=== PATIENT | male | born 1935 | race Caucasian/White ===

== ENCOUNTER 2016-06-07 20:51 | Inpatient (IN) | payer OTHER ==
[~2016-06-07] VITALS: Ht 180.3 cm; Wt 77.3 kg
--- NOTE | 2016-06-07 21:22 | DIAGNOSTIC IMAGING REPORT ---
PROCEDURE: CT HEAD WITHOUT CONTRAST INDICATION: Code stroke. TECHNIQUE: Noncontrast axial images with sagittal and coronal reformations. COMPARISON: None. FINDINGS: There is mild to moderate motion. 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 There is no evidence an acute process or hemorrhage. Mild chronic mucosal thickening in the left ethmoid air cells. Sinuses and mastoids are otherwise normal. IMPRESSION: 1. 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 2. 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 3. There is a 2 cm cyst or focal area of encephalomalacia in the right frontal white matter. 4. No evidence of acute process or hemorrhage. 5. Findings discussed with Dr. Suhas Lind at [address] scans at this facility use dose modulation, iterative reconstruction, and/or weight-based dosing when appropriate to reduce radiation dose to as low as reasonably achievable.
--- NOTE | 2016-06-07 21:53 | ED NURSING NOTES ---
Clinical Report - Nurses [facility] [address] [place] [address] 06/07/2016 20:51 [id number] Triage time 20:50 Jun 07 2016. Acuity: LEVEL 3. Chief Complaint: ALTERED MENTAL STATUS. Alert. MAXIME COMA SCORE: Maxime Coma Scale: 15- eyes open spontaneously (4); best verbal response- oriented x 4 (5); best motor response- obeys commands (6). --21:00 Robert Mora R.N. 20:53 06/07/16. BP: 131/86. HR: 55. RR: 16. O2 saturation: 92% on room air. Temp: 98.3 F. Pain level now: 0/10. --21:00 Robert Mora R.N. Acuity: LEVEL 2. --21:17 Robert Mora R.N. Weight: 80 kg measured. Height/Length: 72 inches Per Patient. BMI: 23.9. --20:57 Robert Mora R.N. Medications Abilify Oral. Albuterol Sulfate Inhalation. Amoxicillin-Pot Clavulanate Oral. Aspirin Oral (Tablet Chewable 81 mg) 1 tablet, daily. Bicalutamide Oral (Tablet 50 mg) 1 tablet, daily. Calcium Carbonate Oral (Tablet Chewable 500 mg) 1 tablet, po. --21:03 Robert Mora R.N. Cyanocobalamin Injection 1000mcg tablet, daily. Fluticasone Furoate-Vilanterol Inhalation. --21:04 Robert Mora R.N. Atrovent HFA Inhalation. --21:04 Robert Mora R.N. Metoprolol Succinate ER Oral 1/2 tablet, daily. --21:05 Robert Mora R.N. Nitroglycerin Translingual (Solution 0.4 mg/spray), as needed. --21:06 Robert Mora R.N. Omeprazole Oral 20 mg, daily. Senna Oral. Sertraline HCl Oral 100 mg, daily. Simvastatin Oral 40 mg, at bedtime. Sucralfate Oral 1 gm, daily. --21:07 Robert Mora R.N. The following entry was struck and corrected by Robert Mora R.N., 22:44 (06/07/16) Reason for correction - other(correction). [facility] S[facility]. --21:07 Robert Mora R.N. --END STRIKE>> The following entry was struck and corrected by Robert Mora R.N., 22:43 (06/07/16) Reason for correction - other(correction). <<[facility] Simvastatin Oral. --21:07 Robert Mora R.N. --END STRIKE>> The following entry was struck and corrected by Robert Mora R.N., 22:43 (06/07/16) Reason for correction - other(correction). <<[facility] ENTRY-- Sertraline HCl Oral. --21:07 Robert Mora R.N. --END STRIKE>> The following entry was struck and corrected by Robert Mora R.N., 22:42 (06/07/16) Reason for correction - other(correction). <<[facility] Omeprazole Oral. --21:07 Robert Mora R.N. --END STRIKE>> The following entry was struck and corrected by Robert Mora R.N., 22:42 (06/07/16) Reason for correction - other(correction). <<[facility] Metoprolol Succinate ER Oral. --21:05 Robert Mora R.N. --END STRIKE>> The following entry was struck and corrected by Robert Mora R.N., 22:40 (06/07/16) Reason for correction - other(correction). <<[facility] Nitroglycerin Translingual. --21:06 Robert Mora R.N. --END STRIKE>> The following entry was struck and corrected by Robert Mora R.N., 22:39 (06/07/16) Reason for correction - other(correction). <<[facility] ENTRY-- Cyanocobalamin Injection. --21:04 Robert Mora R.N. --END STRIKE>> The following entry was struck and corrected by Rboert Mora R.N., 22:38 (06/07/16) Reason for correction - other(correction). <<[facility] ENTRY-- Calcium Carbonate Oral. --21:03 Robert Mora R.N. --END STRIKE>> The following entry was struck and corrected by Robert Mora R.N., 22:37 (06/07/16) Reason for correction - other(correction). <<[facility] ENTRY-- Bicalutamide Oral. --21:03 Robert Mora R.N. --END STRIKE>> The following entry was struck and corrected by Robert Mora R.N., 22:37 (06/07/16) Reason for correction - other(correction). <<[facility] ENTRY-- Aspirin Oral. --21:03 Robert Mora R.N. --END STRIKE>>. (pt's list of Rx). --21:00 Robert Mora R.N. Allergies Codeine. Definite Moderate(nausea, vomiting) --21:07 Robert Mora R.N. The following entry was struck and corrected by Robert Mora R.N., 22:45 (06/07/16) Reason for correction - other(correction). <<[facility] ENTRY-- Codeine. --21:07 Robert Mora R.N. --END STRIKE>>. History Arrived by EMS. Historian: patient. Unaccompanied. ( CODE STROKE (called). New LUE + LLE weakness, with slurred speech and (L) facial droop.). This started today. Onset. (about 1 1/2 hours ago). He has had new onset of weakness of the left face, arm and leg. He has had trouble walking. 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 --21:00 Robert Mora R.N. SURGERY HX: Appendectomy. Tonsillectomy. SOCIAL HX: Former smoker, end date 2016- 1 pack per day. No alcohol use or drug use. No infectious disease exposure. ABUSE ASSESSMENT: No report of abuse. FALL RISK ASSESSMENT: Fall risk assessment completed. No fall risk identified. NUTRITIONAL RISK ASSESSMENT: The nutritional risk assessment revealed no deficiencies. LEARNING NEEDS ASSESSMENT: The learning needs assessment revealed no barriers. FUNCTIONAL ASSESSMENT: Functional assessment performed: mobility impairment present- this mobility impairment is a new problem. SKIN INTEGRITY ASSESSMENT: Skin integrity risk assessment completed. No skin integrity risk identified. --21:17 Robert Mora R.N. PROBLEMS: Emphysema. Prostate Cancer. Back Pain. --21:12 Robert Mora R.N. Cardiac Procedures. --21:18 Robert Mora R.N. ADDITIONAL SURGERIES: Back Surgery. --21:12 Robert Mora R.N. Angioplasty of blood vessel. --21:18 Robert Mora R.N. Carotid Surgery. --21:28 Robert Mora R.N. Hernia Repair. --22:16 Robert Mora R.N. Interventions ID band on patient. To treatment room. --21:00 Robert Mora R.N. ID and allergy band on patient. --21:17 Robert Mora R.N. PHYSICAL ASSESSMENT To room via stretcher. GENERAL / NEURO / PSYCH: Alert. The patient is disoriented to time. Patient's speech is slurred. Patient appears well-nourished and neat and clean. RESPIRATORY: Respirations not labored. CVS: Normal sinus rhythm noted. Capillary refill less than 2 seconds. GI / : Abdomen soft and nontender. Bowel sounds within normal limits. SKIN: Skin is warm and dry. Normal skin turgor. --21:20 Robert Mora R.N. NURSING PROGRESS NOTES Patient transported to CT by stretcher with tech. --21:00 Robert Mora R.N. 20:57 06/07/2016 Site #1 started prior to arrival by EMS via IV in the right antecubital space with an 20g angiocath (Field Start). --21:12 Robert Mora R.N. 21:15 06/07/16. Patient returned from CT by stretcher with tech. --21:21 Robert Mora R.N. Oxygen administered by nasal cannula at 2 liters. Patient gowned. Reassurance given to the patient. Patient identifiers checked. Call light placed in reach. Side rails up x 2. Bed placed in lowest position. Brakes of bed on. Patient ready for evaluation- chart flagged and ED physician notified. --21:22 Robert Mora R.N. multifold operator, pulse oximeter and NIBP monitor placed on patient; cardiac/vascular sonographer- Lead II; monitor alarms on. Reassurance given to the patient. Patient identifiers checked. Call light placed in reach. Side rails up x 2. Bed placed in lowest position. Brakes of bed on. Patient ready for evaluation- chart flagged and ED physician notified. --21:23 Robert Mora R.N. 21:25. Patient ID band checked for patient name, birthdate and medical record number: patient confirmed. Blood samples drawn from the right antecubital space peripheral IV site by nurse: mary hardy. Line flushed with 10 mL normal saline post blood draw (blood drawn by ISAIAS Hernandez). --21:27 Robert Mora R.N. EKG time: (2 PM). EKG was ordered, performed by a tech and shown to the ED physician. --21:31 [email or web address] 22:10 06/07/2016 Started bag #1 1000 mL IV Fluids IV NS (Saline); at 100 mL/hr over 10 hour(s) via site #1 via IV pump. Allergies verified and confirmed 5 rights. IV patency established. IV site checked: no pain, redness, or swelling. IV flushed thoroughly pre- and post-medication administration. --22:15 Robert Mora R.N. 22:45 06/07/16. BP: 159/102. HR: 70. RR: 16. O2 saturation: 99% on nasal cannula at 2 liters/minute. Pain level now: 0/10. --22:46 Robert Mora R.N. 22:45 06/07/16. Patient ID band checked for patient name, birthdate and medical record number: patient confirmed. Clean catch urine collected with return of yellow-colored clear urine; odor is normal; sample sent to lab for urinalysis and culture. Specimen labeled in the presence of the patient. --22:53 Robert Mora R.N. 23:05 06/07/2016 Site #[address] upon admission; patent, no pain and no signs of infection or infiltration. Good blood return present (IV infusing). --23:34 Robert Mora R.N. 23:05 06/07/2016 IV Fluids IV NS Continued: upon admission at the rate of 100 mL/hr. 900 mL remaining bag #1. IV patency established. IV site checked: no pain, redness, or swelling. IV flushed thoroughly. --23:32 Robert oMra R.N. DISPOSITION / DISCHARGE Departure time: :Jun 07 2016. --23:18 Robert Mora R.N. 23:00 06/07/16. BP: 166/81. HR: 69. RR: 16. O2 saturation: 99% on nasal cannula at 2 liters/minute. Temp: 98.2 F (oral). Pain level now: 0/10. --23:24 Robert Mora R.N. <<[facility] ENTRY-- Departure time: 5. --23:24 Robert Mora R.N. --END STRIKE>> Correction --23:28 Robert Mora R.N. 23:05. Admitted to Acute Care. Transported via stretcher by nurse with IV and O2. Report was given to a nurse via a phone call. Report included patient's care, treatment, medications, reviewed medication reconcilliation, and condition (including any recent changes or anticipated changes). All questions were answered. Report was acknowledged and care was transferred. (Viral RN). Patient's personal items; items were placed in belongings bag and transported with the patient. --23:26 Robert Mora R.N. Locked/Released at 06/07/2016 23:36 by Robert Mora R.N.
--- NOTE | 2016-06-07 21:53 | ED CLINICAL REPORT ---
Clinical Report - Physicians/Mid Levels [facility] [address] [place] [address] 06/07/2016 20:51 Patient: YOSI BULLOCK Time Seen: 21:02. Arrived- By ambulance. Historian- patient and EMS personnel. History limited by vague historian. HISTORY OF PRESENT ILLNESS Chief Complaint: WEAKNESS and FACIAL DROOP. This started about 2 hours ago and is still present. It was abrupt in onset and has been waxing/waning. The patient has had new onset of weakness of the left face (moderate), left arm (mild) and left leg (mild). No numbness or tingling. He has had difficulty with speech and a recent fall. He has had visual disturbance (chronically). He has had difficulty walking. At its maximum deficit described as moderate. When seen in the E.D.,deficit described as moderate. REVIEW OF SYSTEMS No chills, fever, sweats, calf pain or chest pain. No cough, difficulty breathing, pedal edema, palpitations or abdominal pain. No constipation, diarrhea, nausea, vomiting or urinary problems. he has been on Plavix. A recent medication list from when he was seen at [facility] however does not list the medication. He and his family are not sure whether he has been taking it or not. All systems otherwise negative, except as recorded above. PAST HISTORY Stroke. ( metastatic prostate cancer). Problems: Cardiac Procedures. Emphysema. Prostate Cancer. Back Pain. Additional Surgeries: Angioplasty of blood vessel. Appendectomy. Back Surgery. Carotid Surgery. Tonsillectomy. Medications: Omeprazole Oral. Senna Oral. Sertraline HCl Oral. Simvastatin Oral. Sucralfate Oral. Nitroglycerin Translingual. Metoprolol Succinate ER Oral. Atrovent HFA Inhalation. Cyanocobalamin Injection. Fluticasone Furoate-Vilanterol Inhalation. Abilify Oral. Albuterol Sulfate Inhalation. Amoxicillin-Pot Clavulanate Oral. Aspirin Oral. Bicalutamide Oral. Calcium Carbonate Oral. Allergies: Codeine. SOCIAL HISTORY Former smoker. No alcohol use or drug use. Resides in an apartment. He lives with spouse. Advanced directives: [id number] (DNR). Forms provided by patient. Advanced directives discussed with the patient and family (He has his POLST with him). FAMILY HISTORY Denies family medical history. ADDITIONAL NOTES The nursing notes have been reviewed. PHYSICAL EXAM Vital Signs: 06/07/2016 20:53 BP: 131/86. HR: 55. RR: 16. O2 saturation: 92%. Temp: 98.3 F. Pain level now: 0/10. Have been reviewed. Appearance: Alert. He appears frail and elderly. Head: Head atraumatic. Eyes: Pupils equal, round and reactive to light. ENT: Airway intact. Pharynx normal. Neck: No meningeal signs or carotid bruit. (bilateral healed surgical scars). CVS: Normal heart rate and rhythm. 1/6 systolic murmur. Respiratory: No respiratory distress. Decreased air movement. Abdomen: Soft and nontender. No organomegaly. Back: (kyphotic). Skin: Skin warm and dry. No rash. Extremities: Extremities exhibit normal ROM. No calf tenderness. No lower extremity edema. Neuro: Alert. The patient is disoriented to time. Cranial nerve deficit present, as evidenced by a left facial droop. Moderate left-sided facial weakness. He has had weakness of the left face (moderate), left arm (mild), left hand (mild) and left leg (mild). LABS, X-RAYS, AND EKG EKG: Rate: 57. Ectopic beats. Premature atrial contractions. Q waves in lead V1 and V2. T wave inversion in lead V5 and V6. Prior EKG unavailable. The study has been independently viewed by me. Chest X-ray: (IMPRESSION: 1. Borderline cardiomegaly. 2. Otherwise negative chest.). The X-rays were interpreted by the radiologist and contemporaneously by me. CT Head: (IMPRESSION: 1. 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 2. 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 3. There is a 2 cm cyst or focal area of encephalomalacia in the right frontal white matter. 4. No evidence of acute process or hemorrhage.). The study was interpreted by the radiologist and contemporaneously by me. Laboratory Tests: CBC w Diff: (JAVIER: 06/07/2016 21:10) ( MsgRcvd 06/07/2016 21:38) Final results Test Result Flag Units (Reference) WHITE BLOOD COUNT 5.9 K/uL (4.5-11.5) RED BLOOD COUNT 4.14 L M/uL (4.50-5.90) HEMOGLOBIN 12.1 L gm/dL (13.5-17.5) HEMATOCRIT 36.7 L % (41.0-53.0) MEAN CELL VOLUME 89 fL (80-100) MEAN CORPUSCULAR HGB 29 pg (26-34) MEAN CORPUSCULAR HGB CONC 33 g/dL (31-37) RED CELL DISTRIBUTION WIDTH 14.8 % (11.6-14.8) PLATELET COUNT 177 K/uL (150-400) NEUTROPHIL % 51.7 % (50-75) LYMPH % 27.9 % (25-40) MONO % 10.5 % (3-14) EOSINOPHIL % 8.2 H % (0-4) BASOPHIL % 1.7 % (0-2) PT with INR: (JAVIER: 06/07/2016 21:10) ( MsgRcvd 06/07/2016 21:39) Final results Test Result Flag Units (Reference) INR 1.0 (0.8-1.2) Low Intensity Therapy: INR 1.5-2.0 PT range 18.5-23.1Mod.Intensity Therapy: INR 2.0-3.0 PT range 23.1-31.5High Intensity Therapy: INR 2.5-3.5 PT range 27.4-35.5High Intensity Therapy 2: INR 3.0-4.0 PT range 31.5-39.3 APTT 31 SECONDS (24-34) FIBRINOGEN 292 mg/dL (193-455) D-DIMER QUANTITATIVE 3.08 H ug/mLFEU (0.27-0.52) The primary value of this quantitative assay relates toits negative predictive value (i.e. exclusion) of pulmonaryembolism/deep vein thrombosis/DIC.Elevated levels of d-dimer may also occur with:, age, cancer, inflammation, liver disease,post-op, infection, hematoma, coronary disease, peripheralarteriopathy, bleeding disorders and thrombolytic treatment.Results should be correlated with other clinical andradiological data.Testing Methodology: Latex Immunoassay CPK: (JAVIER: 06/07/2016 21:10) ( [facility] [place] 22:03) Final results Test Result Flag Units (Reference) CPK 43 U/L (24-260) TROPONIN I 0.05 ng/mL (0.00-1.5) TROPONIN REFERENCE RANGE:<0.1 NEGATIVE0.1-1.5 INDETERMINANT>1.5 POSITIVE CMP: (JAVIER: 06/07/2016 21:10) ( [facility] [place] 21:36) Final results Test Result Flag Units (Reference) GLUCOSE 92 mg/dL (70-110) BUN 20 H mg/dL (7-18) CREATININE 1.5 H mg/dL (0.6-1.3) Estimated GFR 47.98 mL/min Estimated GFR- 58.15 mL/min Note: Persistent reduction over 3 months in eGFR<60 mL/min/1.73 m2 defines CKD. Patients with eGFR values>=60 mL/min/1.73 m2 may also have CKD if evidence ofpersistent proteinuria. Additional information may be foundat www.[email or web address].org. SODIUM 142 mmol/L (136-145) POTASSIUM 3.9 mmol/L (3.5-5.1) CHLORIDE 104 mmol/L (98-107) CARBON DIOXIDE 30 mmol/L (21-32) CALCIUM 8.9 mg/dL (8.5-10.1) TOTAL PROTEIN 6.5 g/dL (6.4-8.2) ALBUMIN 3.5 g/dL (3.3-5.0) BILIRUBIN, TOTAL 0.3 mg/dL (0.0-1.0) ALKALINE PHOSPHATASE 90 U/L (46-116) AST (SGOT) 24 U/L (15-37) ALT (SGPT) 18 U/L (12-78) . PROGRESS AND PROCEDURES Course of Care: Patient is stable. Discussed case with hospitalist, Kimani). Reviewed test results and need for additional work-up. Agreed upon treatment plan and decision to admit. Health care provider will see patient in hospital. Patient, spouse and family counseled regarding the patient's critical condition, test results, diagnosis and need for admission and DNR (Do Not Resuscitate) considerations for the patient. Old medical records ordered. Old records unavailable. Disposition orders written (in [facility]). Disposition: Admitted. CLINICAL IMPRESSION Abnormal EKG. Abnormal tests: (elevated d-dimer). (Electronically signed by Anil Curry MD 06/08/2016 3:01)
--- NOTE | 2016-06-07 21:53 | ED NURSING NOTES ---
Clinical Report - Nurses [facility] [address] [place] [address] 06/07/2016 20:51 [facility]: [id number] TRI[facility] Triage time 20:50 Jun 07 2016. Acuity: LEVEL 3. Chief Complaint: ALTERED MENTAL STATUS. Alert. MAXIME COMA SCORE: Maxime Coma Scale: 15- eyes open spontaneously (4); best verbal response- oriented x 4 (5); best motor response- obeys commands (6). --21:00 Robert Mora R.N. 20:53 06/07/16. BP: 131/86. HR: 55. RR: 16. O2 saturation: 92% on room air. Temp: 98.3 F. Pain level now: 0/10. --21:00 Robert Mora R.N. Acuity: LEVEL 2. --21:17 Robert Mora R.N. Weight: 80 kg measured. Height/Length: 72 inches Per Patient. BMI: 23.9. --20:57 Robert Mora R.N. Medications Abilify Oral. Albuterol Sulfate Inhalation. Amoxicillin-Pot Clavulanate Oral. Aspirin Oral (Tablet Chewable 81 mg) 1 tablet, daily. Bicalutamide Oral (Tablet 50 mg) 1 tablet, daily. Calcium Carbonate Oral (Tablet Chewable 500 mg) 1 tablet, po. --21:03 Robert Mora R.N. Cyanocobalamin Injection 1000mcg tablet, daily. Fluticasone Furoate-Vilanterol Inhalation. --21:04 Robert Mora R.N. Atrovent HFA Inhalation. --21:04 Robert Mora R.N. Metoprolol Succinate ER Oral 1/2 tablet, daily. --21:05 Robert Mora R.N. Nitroglycerin Translingual (Solution 0.4 mg/spray), as needed. --21:06 Robert Mora R.N. Omeprazole Oral 20 mg, daily. Senna Oral. Sertraline HCl Oral 100 mg, daily. Simvastatin Oral 40 mg, at bedtime. Sucralfate Oral 1 gm, daily. --21:07 Robert Mora R.N. The following entry was struck and corrected by Robert Mora R.N., 22:44 (06/07/16) Reason for correction - other(correction). <<[facility]-- Sucralfate Oral. --21:07 Robert Mora R.N. --END STRIKE>> The following entry was struck and corrected by Robert Mora R.N., 22:43 (06/07/16) Reason for correction - other(correction). <<[facility]-- Simvastatin Oral. --21:07 Robert Mora R.N. --END STRIKE>> The following entry was struck and corrected by Robert Mora R.N., 22:43 (06/07/16) Reason for correction - other(correction). <<[facility] ENTRY-- Sertraline HCl Oral. --21:07 Robert Mora R.N. --END STRIKE>> The following entry was struck and corrected by Robert Mora R.N., 22:42 (06/07/16) Reason for correction - other(correction). <<[facility]-- Omeprazole Oral. --21:07 Robert Mora R.N. --END STRIKE>> The following entry was struck and corrected by Robert Mora R.N., 22:42 (06/07/16) Reason for correction - other(correction). <<[facility]-- Metoprolol Succinate ER Oral. --21:05 Robert Mora R.N. --END STRIKE>> The following entry was struck and corrected by Robert Mora R.N., 22:40 (06/07/16) Reason for correction - other(correction). <<[facility]-- Nitroglycerin Translingual. --21:06 Robert Mora R.N. --END STRIKE>> The following entry was struck and corrected by Robert Mora R.N., 22:39 (06/07/16) Reason for correction - other(correction). <<[facility] ENTRY-- Cyanocobalamin Injection. --21:04 Robert Mora R.N. --END STRIKE>> The following entry was struck and corrected by Robert Mora R.N., 22:38 (06/07/16) Reason for correction - other(correction). <<[facility] ENTRY-- Calcium Carbonate Oral. --21:03 Robert Mora R.N. --END STRIKE>> The following entry was struck and corrected by Robert Mora R.N., 22:37 (06/07/16) Reason for correction - other(correction). <<[facility] ENTRY-- Bicalutamide Oral. --21:03 Robert Mora R.N. --END STRIKE>> The following entry was struck and corrected by Robert Mora R.N., 22:37 (06/07/16) Reason for correction - other(correction). <<[facility] ENTRY-- Aspirin Oral. --21:03 Robert Mora R.N. --END STRIKE>>. (pt's list of Rx). --21:00 Robert Mora R.N. Allergies Codeine. Definite Moderate(nausea, vomiting) --21:07 Robert Mora R.N. The following entry was struck and corrected by Robert Mora R.N., 22:45 (06/07/16) Reason for correction - other(correction). <<[facility] ENTRY-- Codeine. --21:07 Robert Mora R.N. --END STRIKE>>. History Arrived by EMS. Historian: patient. Unaccompanied. ( CODE STROKE (called). New LUE + LLE weakness, with slurred speech and (L) facial droop.). This started today. Onset. (about 1 1/2 hours ago). He has had new onset of weakness of the left face, arm and leg. He has had trouble walking. Treatment HITCHER: None. --21:00 Robert Mora R.N. SURGERY HX: Appendectomy. Tonsillectomy. SOCIAL HX: Former smoker, end date 2016- 1 pack per day. No alcohol use or drug use. No infectious disease exposure. ABUSE ASSESSMENT: No report of abuse. FALL RISK ASSESSMENT: Fall risk assessment completed. No fall risk identified. NUTRITIONAL RISK ASSESSMENT: The nutritional risk assessment revealed no deficiencies. LEARNING NEEDS ASSESSMENT: The learning needs assessment revealed no barriers. FUNCTIONAL ASSESSMENT: Functional assessment performed: mobility impairment present- this mobility impairment is a new problem. SKIN INTEGRITY ASSESSMENT: Skin integrity risk assessment completed. No skin integrity risk identified. --21:17 Robert Mora R.N. PROBLEMS: Emphysema. Prostate Cancer. Back Pain. --21:12 Robert Mora R.N. Cardiac Procedures. --21:18 Robert Mora R.N. ADDITIONAL SURGERIES: Back Surgery. --21:12 Robert Mora R.N. Angioplasty of blood vessel. --21:18 Robert Mora R.N. Carotid Surgery. --21:28 Robert Mora R.N. Hernia Repair. --22:16 Robert Mora R.N. Interventions ID band on patient. To treatment room. --21:00 Robert Mora R.N. ID and allergy band on patient. --21:17 Robert Mora R.N. PHYSICAL ASSESSMENT To room via stretcher. GENERAL / NEURO / PSYCH: Alert. The patient is disoriented to time. Patient's speech is slurred. Patient appears well-nourished and neat and clean. RESPIRATORY: Respirations not labored. CVS: Normal sinus rhythm noted. Capillary refill less than 2 seconds. GI / : Abdomen soft and nontender. Bowel sounds within normal limits. SKIN: Skin is warm and dry. Normal skin turgor. --21:20 Robert Mora R.N. NURSING PROGRESS NOTES Patient transported to CT by stretcher with tech. --21:00 Robert Mora R.N. 20:57 06/07/2016 Site #1 started prior to arrival by EMS via IV in the right antecubital space with an 20g angiocath (Field Start). --21:12 Robert Mora R.N. 21:15 06/07/16. Patient returned from CT by stretcher with tech. --21:21 Robert Mora R.N. Oxygen administered by nasal cannula at 2 liters. Patient gowned. Reassurance given to the patient. Patient identifiers checked. Call light placed in reach. Side rails up x 2. Bed placed in lowest position. Brakes of bed on. Patient ready for evaluation- chart flagged and ED physician notified. --21:22 Robert Mora R.N. surveillance monitor, pulse oximeter and NIBP monitor placed on patient; environmental monitoring technician- Lead II; monitor alarms on. Reassurance given to the patient. Patient identifiers checked. Call light placed in reach. Side rails up x 2. Bed placed in lowest position. Brakes of bed on. Patient ready for evaluation- chart flagged and ED physician notified. --21:23 Robert Mora R.N. 21:25. Patient ID band checked for patient name, birthdate and medical record number: patient confirmed. Blood samples drawn from the right antecubital space peripheral IV site by nurse: mary hardy. Line flushed with 10 mL normal saline post blood draw (blood drawn by ISAIAS Hernandez). --21:27 Robert Mora R.N. EKG time: (2 PM). EKG was ordered, performed by a tech and shown to the ED physician. --21:31 EricyukiarmandericLiliya 22:10 06/07/2016 Started bag #1 1000 mL IV Fluids IV NS (Saline); at 100 mL/hr over 10 hour(s) via site #1 via IV pump. Allergies verified and confirmed 5 rights. IV patency established. IV site checked: no pain, redness, or swelling. IV flushed thoroughly pre- and post-medication administration. --22:15 Robert Mora R.N. 22:45 06/07/16. BP: 159/102. HR: 70. RR: 16. O2 saturation: 99% on nasal cannula at 2 liters/minute. Pain level now: 0/10. --22:46 Robert Mora R.N. 22:45 06/07/16. Patient ID band checked for patient name, birthdate and medical record number: patient confirmed. Clean catch urine collected with return of yellow-colored clear urine; odor is normal; sample sent to lab for urinalysis and culture. Specimen labeled in the presence of the patient. --22:53 Robert Mora R.N. 23:05 06/07/2016 Site #[address] upon admission; patent, no pain and no signs of infection or infiltration. Good blood return present (IV infusing). --23:34 Robert Mora R.N. 23:05 06/07/2016 IV Fluids IV NS Continued: upon admission at the rate of 100 mL/hr. 900 mL remaining bag #1. IV patency established. IV site checked: no pain, redness, or swelling. IV flushed thoroughly. --23:32 Robert Mora R.N. DISPOSITION / DISCHARGE Departure time: :Jun 07 2016. --23:18 Robert Mora R.N. 23:00 06/07/16. BP: 166/81. HR: 69. RR: 16. O2 saturation: 99% on nasal cannula at 2 liters/minute. Temp: 98.2 F (oral). Pain level now: 0/10. --23:24 Robert Mora R.N. <<[facility] ENTRY-- Departure time: 5. --23:24 Robert Mora R.N. --END STRIKE>> Correction --23:28 Robert Mora R.N. 23:05. Admitted to Acute Care. Transported via stretcher by nurse with IV and O2. Report was given to a nurse via a phone call. Report included patient's care, treatment, medications, reviewed medication reconcilliation, and condition (including any recent changes or anticipated changes). All questions were answered. Report was acknowledged and care was transferred. (Viral RN). Patient's personal items; items were placed in belongings bag and transported with the patient. --23:26 Robert Mora R.N. Locked/Released at 06/07/2016 23:36 by Robert Mora R.N.
--- NOTE | 2016-06-07 21:53 | ED ORDER SUMMARY ---
..... Patient: YOSI BULLOCK OrderSheet [facility] VisitID: [id number] [address] [place] [address] 80y, M Registration Date/Time: 06/07/2016 ORDER SHEET Weight: 80 kg (measured) Allergies: Codeine, GENERAL ORDERS: CT Head wo Cont Urgent (20:55 06/07/2016 Kimberly Kidd) (Ack 20:56 AMcQuoid ER Tech1) (21:03 MCampbell) Stroke Panel Stat (20:55 06/07/2016 Kimberly Kidd) (Ack 20:56 AMcQuoid ER Tech1) (21:12 Juan M R.N.) EKG - ER Stat (20:55 06/07/2016 Kimberly Kidd) (Ack 20:56 AMcQuoid ER Tech1) (21:13 JRrafiaelli R.N.) CPK Urgent (21:42 06/07/2016 AMcQuoid ER Tech1 verbal order read back to Jenae BERNAL) (21:43 AMcQuoid ER Tech1) Troponin-I Urgent (21:42 06/07/2016 AMcQuoid ER Tech1 verbal order read back to Jenae BERNAL) (21:43 AMcQuoid ER Tech1) Chest 1V Urgent (21:54 06/07/2016 Jenae BERNAL) (Ack 21:56 AMcQuoid ER Tech1) (21:59 CBradburn R.N.) UA-Culture if indicated Urgent (22:51 06/07/2016 Juan M R.N. verbal order read back to Jenae BERNAL) (22:51 Juan M R.N.) MEDICATION ORDERS: IV FLUIDS: IV Saline Lock (20:55 06/07/2016 Kimberly Kidd) (21:12 Juan M R.N.) IV NS : initial bolus none -, then 100 mL/hr (NOW) (22:14 06/07/2016 Juan M R.N. verbal order read back to Jenae BERNAL) (22:15 omanelli R.N.) ORDER SHEET NOTES: [Electronically signed by Robert Mora R.N. (23:36 06/07/2016)] [Electronically signed by Anil Curry MD (03:01 06/08/2016)] [Electronically locked/signed by Robert Mora R.N. (23:36 06/07/2016)]
--- NOTE | 2016-06-07 21:53 | ED ORDER SUMMARY ---
..... Patient: YOSI BULLOCK OrderSheet [facility] VisitID: [id number] [address] [place] [address] 80y, M Registration Date/Time: 06/07/2016 ORDER SHEET Weight: 80 kg (measured) Allergies: Codeine, GENERAL ORDERS: CT Head wo Cont Urgent (20:55 06/07/2016 Kimberly Kidd) (Ack 20:56 AMcQuoid ER Tech1) (21:03 MCampbell) Stroke Panel Stat (20:55 06/07/2016 Kimberly Kidd) (Ack 20:56 AMcQuoid ER Tech1) (21:12 Juan M R.N.) EKG - ER Stat (20:55 06/07/2016 Kimberly Kidd) (Ack 20:56 AMcQuoid ER Tech1) (21:13 JRrafiaelli R.N.) CPK Urgent (21:42 06/07/2016 AMcQuoid ER Tech1 verbal order read back to Jenae BERNAL) (21:43 AMcQuoid ER Tech1) Troponin-I Urgent (21:42 06/07/2016 AMcQuoid ER Tech1 verbal order read back to Jenae BERNAL) (21:43 AMcQuoid ER Tech1) Chest 1V Urgent (21:54 06/07/2016 Jenae BERNAL) (Ack 21:56 AMcQuoid ER Tech1) (21:59 CBradburn R.N.) UA-Culture if indicated Urgent (22:51 06/07/2016 Juan M R.N. verbal order read back to Jenae BERNAL) (22:51 Juan M R.N.) MEDICATION ORDERS: IV FLUIDS: IV Saline Lock (20:55 06/07/2016 Kimberly Kidd) (21:12 Juan M R.N.) IV NS : initial bolus none -, then 100 mL/hr (NOW) (22:14 06/07/2016 Juan M R.N. verbal order read back to Jenae BERNAL) (22:15 omanelli R.N.) ORDER SHEET NOTES: [Electronically signed by Robert Mora R.N. (23:36 06/07/2016)] [Electronically signed by Anil Curry MD (03:01 06/08/2016)] [Electronically locked/signed by Robert Mora R.N. (23:36 06/07/2016)]
--- NOTE | 2016-06-07 22:23 | History & Physical Report ---
Information Source Information Source: Self Reliability: Poor History Chief Complaint left sided weakness new onset History of Present Illness Patient is a 80 year old male that is presenting with a new onset of left sided weakness. Pateint can not provide much history however around 930 today patient noticed that he had sudden onset left sided weakness and left sided facial droop. He had accompanying dysarthria stemming from the left sided facial weakness. Patient has had a history of strokes in the past which has left him with varying degrees of deficits however patient could not expand on this secondary to his dysarthria. Patient is adament that the left sided weakness symptoms are new. Pateint has no other complaints at the moment, currently waiting for the with more information. Patient History 1. Abnormal EKG 2. Renal insufficiency 3. 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 Patient smoked 1 pack a day for the past 55 years, quit 1 year ago. Pateint does not drink or use illicit substances. He lives in a apartment with his . Family History Family history was reviewed; no changes noted. Medications and Allergies Medications Home Medications Abilify Oral. Albuterol Sulfate Inhalation. Amoxicillin-Pot Clavulanate Oral. Aspirin Oral (Tablet Chewable 81 mg) 1 tablet, daily. Bicalutamide Oral (Tablet 50 mg) 1 tablet, daily. Calcium Carbonate Oral (Tablet Chewable 500 mg) 1 tablet, po. --21:03 Cyanocobalamin Injection 1000mcg tablet, daily. Fluticasone Furoate-Vilanterol Inhalation Atrovent HFA Inhalation. Metoprolol Succinate ER Oral 1/2 tablet, daily Nitroglycerin Translingual (Solution 0.4 mg/spray), as needed Omeprazole Oral 20 mg, daily. Senna Oral. Sertraline HCl Oral 100 mg, daily. Simvastatin Oral 40 mg, at bedtime. Sucralfate Oral 1 gm, daily Current Medications Sig/Bill Start time Last Medication Dose Route Stop Time Status Admin Atorvastatin Calcium 40 MG QPM 06/08 1800 AC PO Aspirin 325 MG DAILY 06/08 0900 AC PO Acetaminophen 650 MG Q6H PRN 06/075 AC PO Sodium Chloride 1,000 ML ASDIRECTED 06/07 2245 AC IV Sodium Chloride 1,000 ML ASDIRECTED 06/07 2230 AC IV Allergies Coded Allergies: Codeine (06/07/16) Review of Systems Constitutional Other (unable to provide- dysarthria). Physical Exam Vital Signs / I&Os Vital Signs Date Time Temp Pulse Resp B/P Pulse O2 O2 Flow FiO2 Ox Delivery Rate 06/08 0219 98.4 59 18 146/97 97 Nasal 2.0 Cannula 06/08 0106 Nasal 2.0 Cannula 06/07 2317 98.4 64 18 160/96 98 Nasal 2.0 Cannula I&O 06/07 0800 06/07 1600 06/08 0000 Intake Total Output Total Balance General Appearance Cooperative, No acute distress HEENT Atraumatic, EOMI, Moist mucous membranes, - left sided facial droop- unable to open mouth fully, nasolabial flattening Lungs Clear to auscultation, - bilateral ronchi, unable to clear secretions adquately Neck Supple, No JVD, No masses, No thyromegaly Cardiovascular Normal S1 and S2, No murmurs, gallops, rubs, - irregularly irregular rhythm Abdomen Soft, No tenderness Extremities No cyanosis, No clubbing, No edema, Normal pulses, - decreased muscle strength in the upper and lowe extremities of the left side - patient can lift leg against gravity however can not support leg against resistance - 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 - able to lift arm against gravity however can not support against resistance Skin No Breakdown, No Significant Lesions Neurological - abnormal speech from facial droop - extremity findings as above - able to ambulate however dragging left leg - sensations intact on left side Psych/Mental Status Confused LAB Results Laboratory Tests 06/07 06/07 06/07 2110 2110 2245 Chemistry Plasma Sodium (136 - 145 mmol/L) 142 Plasma Potassium (3.5 - 5.1 mmol/L) 3.9 Plasma Chloride (98 - 107 mmol/L) 104 CO2 (Enzymatic) (21 - 32 mmol/L) 30 BUN (7 - 18 mg/dL) 20 Creatinine (0.6 - 1.3 mg/dL) 1.5 Est GFR ( Amer) (mL/min) 58.15 Est GFR (Non-Af Amer) (mL/min) 47.98 Glucose (70 - 110 mg/dL) 92 Plasma Calcium (8.5 - 10.1 mg/dL) 8.9 Total Bilirubin (0.0 - 1.0 mg/dL) 0.3 AST (15 - 37 U/L) 24 ALT (12 - 78 U/L) 18 Alkaline Phosphatase (46 - 116 U/L) 90 Creatine Kinase (24 - 260 U/L) 43 Troponin (0.00 - 1.5 ng/mL) 0.05 Total Protein (6.4 - 8.2 g/dL) 6.5 Albumin (3.3 - 5.0 g/dL) 3.5 Coagulation INR (0.8 - 1.2) 1.0 APTT (24 - 34 SECONDS) 31 Fibrinogen (193 - 455 mg/dL) 292 D-Dimer, Quantitative (0.27 - 0.52 ug/mLFEU) 3.08 Hematology WBC (4.5 - 11.5 K/uL) 5.9 RBC (4.50 - 5.90 M/uL) 4.14 Hgb (13.5 - 17.5 gm/dL) 12.1 Hct (41.0 - 53.0 %) 36.7 MCV (80 - 100 fL) 89 MCH (26 - 34 pg) 29 RDW (11.6 - 14.8 %) 14.8 Neut % (Auto) (50 - 75 %) 51.7 Lymph % (Auto) (25 - 40 %) 27.9 [place] % (Auto) (3 - 14 %) 10.5 Eos % (Auto) (0 - 4 %) 8.2 Baso % (Auto) (0 - 2 %) 1.7 Plt Count, EDTA (150 - 400 K/uL) 177 PUBS MCHC (31 - 37 g/dL) 33 Urines Urine Color YELLOW Urine Appearance CLEAR Urine pH (5.0 - 8.0) 6.0 Ur Specific [place] (1.010 - 1.030) <= 1.005 Urine Protein (NEGATIVE) NEGATIVE Urine Ketones (NEGATIVE) NEGATIVE Urine Blood (NEGATIVE) NEGATIVE Urine Nitrite (NEGATIVE) NEGATIVE Urine Bilirubin (NEGATIVE) NEGATIVE Urine Urobilinogen (0.2 - 1.0 EU/dL) 0.2 Ur Leukocyte Esterase (NEGATIVE) NEGATIVE Urine RBC (0 - 1 rbc/hpf) NONE SEEN Urine WBC (0 - 1 wbc/hpf) NONE SEEN Ur Epithelial Cells (0 - 5 EPI/hpf) 0-1 Urine Bacteria (NONE SEEN) NONE SEEN Urine Glucose (NEGATIVE) NEGATIVE Urine Comment CULT NOT INDICATED 06/08 0548 Chemistry Plasma Sodium (136 - 145 mmol/L) 145 Plasma Potassium (3.5 - 5.1 mmol/L) 3.6 Plasma Chloride (98 - 107 mmol/L) 110 CO2 (Enzymatic) (21 - 32 mmol/L) 28 BUN (7 - 18 mg/dL) 18 Creatinine (0.6 - 1.3 mg/dL) 1.3 Est GFR ( Amer) (mL/min) >60 Est GFR (Non-Af Amer) (mL/min) 56.60 Glucose (70 - 110 mg/dL) 91 Plasma Calcium (8.5 - 10.1 mg/dL) 9.0 Plasma Magnesium (1.8 - 2.4 mg/dL) 2.0 Total Bilirubin (0.0 - 1.0 mg/dL) 0.5 AST (15 - 37 U/L) 18 ALT (12 - 78 U/L) 19 Alkaline Phosphatase (46 - 116 U/L) 91 Total Protein (6.4 - 8.2 g/dL) 6.1 Albumin (3.3 - 5.0 g/dL) 3.3 Hematology WBC (4.5 - 11.5 K/uL) 5.3 RBC (4.50 - 5.90 M/uL) 3.84 Hgb (13.5 - 17.5 gm/dL) 11.9 Hct (41.0 - 53.0 %) 35.1 MCV (80 - 100 fL) 91 MCH (26 - 34 pg) 31 RDW (11.6 - 14.8 %) 15.3 Neut % (Auto) (50 - 75 %) 46.0 Lymph % (Auto) (25 - 40 %) 33.9 [place] % (Auto) (3 - 14 %) 10.4 Eos % (Auto) (0 - 4 %) 9.1 Baso % (Auto) (0 - 2 %) 0.6 Plt Count, EDTA (150 - 400 K/uL) 154 PUBS MCHC (31 - 37 g/dL) 34 Assessment and Plan Problem List 1. CVA (cerebral vascular accident) Plan - pt has left sided weakness with no evidence of acute cva on ct scan - pts symptoms out of the window for tpa - will obtain mri - will have PT work with patient - will maintain on aspirin and atrovastatin - will need to speak to given inabilty to provide an adequate history 2. Renal insufficiency Plan - signs of renal insuffiency on exam - will avitvely rehdyrate and obtain serial bmps 3. Asthma-COPD overlap syndrome Plan - pt has an extensive history of smoking - will provide with duo-nebs q6 hours - patient has difficulty clearing secreations - not in exacerbation currently 4. Coronary arteriosclerosis Plan - pt has a history of 3 stents placed in the past - will continue wtih aspirin - no ekg changes on admission and 1st troponin is negative - will obtain 1 more value in the am 5. Depression Plan - pt on a few anti-depressive agents - when provides full list will add on 6. Gastric ulcer Plan - pt has an extensive history of gastric ulcers - will keep on ppi and sucralafate when patient is on a diet - no pain noted at the moment
--- NOTE | 2016-06-07 22:37 | DIAGNOSTIC IMAGING REPORT ---
PROCEDURE: XR CHEST 1 VIEW INDICATION: Code stroke. TECHNIQUE: Portable AP view (2205 hours). COMPARISON: None. FINDINGS: Lungs are clear. Borderline cardiomegaly. Mediastinum is normal. There are surgical clips overlying the right lower neck. Thorax is normal. IMPRESSION: 1. Borderline cardiomegaly. 2. Otherwise negative chest.
[2016-06-07 23:17] VITALS: BP 160/96
[2016-06-08 02:19] VITALS: BP 146/97
--- NOTE | 2016-06-08 03:02 | ED MAR SUMMARY ---
..... Medication Administration Record [facility] [address] [place] [address] Patient: YOSI BULLOCK Visit ID: [id number] 80y, M Weight: 80.0 kg Height/Length: 72 in BMI: 23.9 ALLERGIES: Codeine Start 22:10 06/07/2016 Robert Mora RTedN., Continued Upon Admission 23:05 06/07/2016 Robert Mora RTedN. Medication Administered: IV NS (SALINE), Dose: IV Fluids over 10 hour(s), Rate: 100 mL/hr, Dispensed: 1000 mL bag, Site: #1 right AC. Medication Ordered: IV NS : initial bolus none -, then 100 mL/hr (NOW).
--- NOTE | 2016-06-08 03:02 | ED MAR SUMMARY ---
..... Medication Administration Record [address] [place] [address] Patient: YOSI BULLOCK Visit ID: [id number] 80y, M Weight: 80.0 kg Height/Length: 72 in BMI: 23.9 ALLERGIES: Codeine Start 22:10 06/07/2016 Robert Mora RTedN., Continued Upon Admission 23:05 06/07/2016 Robert Mora RTedN. Medication Administered: IV NS (SALINE), Dose: IV Fluids over 10 hour(s), Rate: 100 mL/hr, Dispensed: 1000 mL bag, Site: #1 right AC. Medication Ordered: IV NS : initial bolus none -, then 100 mL/hr (NOW).
--- NOTE | 2016-06-08 03:02 | ED MED RECONCILIATION SUMMARY ---
Patient: YOSI BULLOCK Medication Reconciliation Report [facility] VisitID: [id number] [address] [place] [address] 80y, M Registration Date/Time: 06/07/2016 Weight: 80 kg Height/Length: 72 in. BMI: 23.9 ALLERGIES: Codeine The patient's Home Medications are listed below: THE FOLLOWING MEDICATIONS NEED TO BE RECONCILED: Abilify Oral Albuterol Sulfate Inhalation Amoxicillin-Pot Clavulanate Oral Aspirin Oral (81 mg) 1 tablet, daily Atrovent HFA Inhalation Bicalutamide Oral (50 mg) 1 tablet, daily Calcium Carbonate Oral (500 mg) 1 tablet, po Cyanocobalamin Injection 1000mcg tablet, daily Fluticasone Furoate-Vilanterol Inhalation Metoprolol Succinate ER Oral 1/2 tablet, daily Nitroglycerin Translingual (0.4 mg/spray) Omeprazole Oral 20 mg, daily Senna Oral Sertraline HCl Oral 100 mg, daily Simvastatin Oral 40 mg, at bedtime Sucralfate Oral 1 gm, daily The source(s) of the original Home Medication information: pt's list of Rx The following Medications were given to the patient in the Emergency Department: IV NS IV Fluids bolus 0, then 100 mL/hr, administered: 06/07/2016 10:10:00 PM The following Medications were prescribed to the patient: None.
--- NOTE | 2016-06-08 03:02 | ED MED RECONCILIATION SUMMARY ---
Patient: YOSI BULLOCK Medication Reconciliation Report [facility] VisitID: [id number] [place] [address] 80y, M Registration Date/Time: 06/07/2016 Weight: 80 kg Height/Length: 72 in. BMI: 23.9 ALLERGIES: Codeine The patient's Home Medications are listed below: THE FOLLOWING MEDICATIONS NEED TO BE RECONCILED: Abilify Oral Albuterol Sulfate Inhalation Amoxicillin-Pot Clavulanate Oral Aspirin Oral (81 mg) 1 tablet, daily Atrovent HFA Inhalation Bicalutamide Oral (50 mg) 1 tablet, daily Calcium Carbonate Oral (500 mg) 1 tablet, po Cyanocobalamin Injection 1000mcg tablet, daily Fluticasone Furoate-Vilanterol Inhalation Metoprolol Succinate ER Oral 1/2 tablet, daily Nitroglycerin Translingual (0.4 mg/spray) Omeprazole Oral 20 mg, daily Senna Oral Sertraline HCl Oral 100 mg, daily Simvastatin Oral 40 mg, at bedtime Sucralfate Oral 1 gm, daily The source(s) of the original Home Medication information: pt's list of Rx The following Medications were given to the patient in the Emergency Department: IV NS IV Fluids bolus 0, then 100 mL/hr, administered: 06/07/2016 10:10:00 PM The following Medications were prescribed to the patient: None.
--- NOTE | 2016-06-08 03:02 | ED DISCHARGE INSTRUCTIONS ---
Patient: YOSI BULLOCK General Instructions [facility] VisitID: [id number] [address] [place] [address] 80y, M Registration Date/Time: 06/07/2016 Abnormal EKG. Abnormal tests: (elevated d-dimer). (Electronically signed by Anil Curry MD 06/08/2016 3:01)
--- NOTE | 2016-06-08 03:02 | ED DISCHARGE INSTRUCTIONS ---
Patient: YOSI BULLOCK General Instructions [facility] VisitID: [id number] [address] [place] [address] 80y, M Registration Date/Time: 06/07/2016 Abnormal EKG. Abnormal tests: (elevated d-dimer). (Electronically signed by Anil Curry MD 06/08/2016 3:01)
[2016-06-08 07:01] VITALS: BP 181/83
--- NOTE | 2016-06-08 07:37 | Progress Note ---
Subjective General Note Date: June 08, 2016 Admission Date: May Hospital Day: 3 PCP: gary Status: Inpatient Advanced Directive: FULL CODE Room: 205-S Patient is a 80 year old male that is presenting with a new onset of left sided weakness. Pateint can not provide much history however around 930 today patient noticed that he had sudden onset left sided weakness and left sided facial droop. He had accompanying dysarthria stemming from the left sided facial weakness. Patient has had a history of strokes in the past which has left him with varying degrees of deficits however patient could not expand on this secondary to his dysarthria. Patient is adament that the left sided weakness symptoms are new. Pateint has no other complaints at the moment, currently waiting for the with more information. Subjective Patient dysarthria and right-sided weakness, left-sided facial droop. Patient is concerned that he hasn't eaten this morning. Patient had an MRI performed which showed new right-sided lacunar infarcts. Patient is scheduled. First beach swallow evaluation. Family is entertaining. Patient again concerned about the overall care. Discussed the recommendations of care at this time. Including speech and swallow along with physical therapy. Patient will need to be on appropriate management for recovery. Patient requests Patient is hungry, asking to eat something. Physical Exam Vital Signs / I&Os Vital Signs Date Time Temp Pulse Resp B/P Pulse O2 O2 Flow FiO2 Ox Delivery Rate 06/08 0701 97.9 59 20 181/83 97 Nasal 2.0 Cannula 06/08 0219 98.4 59 18 146/97 97 Nasal 2.0 Cannula 06/08 0106 Nasal 2.0 Cannula 06/07 2317 98.4 64 18 160/96 98 Nasal 2.0 Cannula I&O 06/07 0800 06/07 1600 06/08 0000 Intake Total Output Total Balance General Appearance No acute distress HEENT left sided facial droop patient is a symmetric smile, difficulty with holding lips together. 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 Facial droop on the left. Dysarthria Psych/Mental Status Mood normal LAB Results Laboratory Tests 06/070 2110 2245 Chemistry Plasma Sodium (136 - 145 mmol/L) 142 Plasma Potassium (3.5 - 5.1 mmol/L) 3.9 Plasma Chloride (98 - 107 mmol/L) 104 CO2 (Enzymatic) (21 - 32 mmol/L) 30 BUN (7 - 18 mg/dL) 20 Creatinine (0.6 - 1.3 mg/dL) 1.5 Est GFR ( Amer) (mL/min) 58.15 Est GFR (Non-Af Amer) (mL/min) 47.98 Glucose (70 - 110 mg/dL) 92 Plasma Calcium (8.5 - 10.1 mg/dL) 8.9 Total Bilirubin (0.0 - 1.0 mg/dL) 0.3 AST (15 - 37 U/L) 24 ALT (12 - 78 U/L) 18 Alkaline Phosphatase (46 - 116 U/L) 90 Creatine Kinase (24 - 260 U/L) 43 Troponin (0.00 - 1.5 ng/mL) 0.05 Total Protein (6.4 - 8.2 g/dL) 6.5 Albumin (3.3 - 5.0 g/dL) 3.5 Coagulation INR (0.8 - 1.2) 1.0 APTT (24 - 34 SECONDS) 31 Fibrinogen (193 - 455 mg/dL) 292 D-Dimer, Quantitative (0.27 - 0.52 ug/mLFEU) 3.08 Hematology WBC (4.5 - 11.5 K/uL) 5.9 RBC (4.50 - 5.90 M/uL) 4.14 Hgb (13.5 - 17.5 gm/dL) 12.1 Hct (41.0 - 53.0 %) 36.7 MCV (80 - 100 fL) 89 MCH (26 - 34 pg) 29 RDW (11.6 - 14.8 %) 14.8 Neut % (Auto) (50 - 75 %) 51.7 Lymph % (Auto) (25 - 40 %) 27.9 [place] % (Auto) (3 - 14 %) 10.5 Eos % (Auto) (0 - 4 %) 8.2 Baso % (Auto) (0 - 2 %) 1.7 Plt Count, EDTA (150 - 400 K/uL) 177 PUBS MCHC (31 - 37 g/dL) 33 Urines Urine Color YELLOW Urine Appearance CLEAR Urine pH (5.0 - 8.0) 6.0 Ur Specific [place] (1.010 - 1.030) <= 1.005 Urine Protein (NEGATIVE) NEGATIVE Urine Ketones (NEGATIVE) NEGATIVE Urine Blood (NEGATIVE) NEGATIVE Urine Nitrite (NEGATIVE) NEGATIVE Urine Bilirubin (NEGATIVE) NEGATIVE Urine Urobilinogen (0.2 - 1.0 EU/dL) 0.2 Ur Leukocyte Esterase (NEGATIVE) NEGATIVE Urine RBC (0 - 1 rbc/hpf) NONE SEEN Urine WBC (0 - 1 wbc/hpf) NONE SEEN Ur Epithelial Cells (0 - 5 EPI/hpf) 0-1 Urine Bacteria (NONE SEEN) NONE SEEN Urine Glucose (NEGATIVE) NEGATIVE Urine Comment CULT NOT INDICATED 06/08 0548 Chemistry Plasma Sodium (136 - 145 mmol/L) 145 Plasma Potassium (3.5 - 5.1 mmol/L) 3.6 Plasma Chloride (98 - 107 mmol/L) 110 CO2 (Enzymatic) (21 - 32 mmol/L) 28 BUN (7 - 18 mg/dL) 18 Creatinine (0.6 - 1.3 mg/dL) 1.3 Est GFR ( Amer) (mL/min) >60 Est GFR (Non-Af Amer) (mL/min) 56.60 Glucose (70 - 110 mg/dL) 91 Plasma Calcium (8.5 - 10.1 mg/dL) 9.0 Plasma Magnesium (1.8 - 2.4 mg/dL) 2.0 Total Bilirubin (0.0 - 1.0 mg/dL) 0.5 AST (15 - 37 U/L) 18 ALT (12 - 78 U/L) 19 Alkaline Phosphatase (46 - 116 U/L) 91 Total Protein (6.4 - 8.2 g/dL) 6.1 Albumin (3.3 - 5.0 g/dL) 3.3 Hematology WBC (4.5 - 11.5 K/uL) 5.3 RBC (4.50 - 5.90 M/uL) 3.84 Hgb (13.5 - 17.5 gm/dL) 11.9 Hct (41.0 - 53.0 %) 35.1 MCV (80 - 100 fL) 91 MCH (26 - 34 pg) 31 RDW (11.6 - 14.8 %) 15.3 Neut % (Auto) (50 - 75 %) 46.0 Lymph % (Auto) (25 - 40 %) 33.9 [place] % (Auto) (3 - 14 %) 10.4 Eos % (Auto) (0 - 4 %) 9.1 Baso % (Auto) (0 - 2 %) 0.6 Plt Count, EDTA (150 - 400 K/uL) 154 PUBS MCHC (31 - 37 g/dL) 34 Imaging Brain MRI 1. Severe small vessel periventricular ischemic disease with moderate atrophic changes. Two new small lacunar infarcts in the deep white matter on the right. 2. 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 3. There is a 2 cm cyst or focal area of encephalomalacia in the right frontal white matter. 4. No evidence of hemorrhage Assessment and Plan Problem List 1. CVA (cerebral vascular accident) Plan Findings on MRI are consistent with symptomatology. Patient had a new onset stroke. There's 2. Lacunar infarcts on the right. Plan is for rehabilitation to begin. Patient will need need to be seen by speech and swallow. She will remain on telemetry. Patient has a prior cardiac history. Physical therapy to mandate conditioning and stabilization of structure 2. Renal insufficiency Plan Maintain Appropriate hydration. Monitor labs. 3. Asthma-COPD overlap syndrome Plan COPD. Patient is wheezing on exam. Consider respiratory therapy for Q 6 hours. 4. Coronary arteriosclerosis Plan Cardiac history; stented in the past. Last 6 months with echo showing decreased LVEF 5. Depression Plan Mood changes secondary to disease element. 6. Gastric ulcer Plan Monitor GI prophylaxis Current status: Fair, unstable Anticipated discharge date: Anticipated discharge in 1-2 days Anticipated discharge placement: Home Patient care time: Time spent in chart review, patient interview, physical exam, CPOE, and care documentation: 25 minutes Visit to patient today: Complexity of care: High Initial patient evaluation: Emergency department DVT prophylaxis: GI prophylaxis E&M Codes Rounding: Inpt-Moderate/[id number]
[2016-06-08 10:01] VITALS: BP 129/68
[2016-06-08] MEDS ORDERED: CARAFATE E1 GM/10 ML PO (12:20)
[2016-06-08] MEDS ORDERED: ASPIRIN ADULT L81 MG PO (12:20)
[2016-06-08] MEDS ORDERED: ZOLOFT50 MG PO (12:21)
[2016-06-08] MEDS ORDERED: PANTOPRAZOLE SO40 MG PO (12:21)
[2016-06-08] MEDS ORDERED: PLAVIX75 MG PO ×2 (12:21→12:24)
[2016-06-08] MEDS ORDERED: ZOCOR20 MG (12:21)
[2016-06-08] MEDS ORDERED: BICALUTAMIDE50 MG (12:22)
[2016-06-08] MEDS ORDERED: VITAMIN D-31000 UNIT PO (12:22)
[2016-06-08 14:40] VITALS: BP 136/80
--- NOTE | 2016-06-08 15:38 | DIAGNOSTIC IMAGING REPORT ---
PROCEDURE: MR BRAIN W/WO CONTRAST INDICATION: stroke symptoms TECHNIQUE: Multiplanar multisequence MRI imaging of the brain without contrast. Post administration of 15 ml ProHance gadolinium based IV contrast, three plane T1 fat sat sequences were obtained. COMPARISON: Head CT 06/07/2016 FINDINGS: There are two new small lacunar infarcts in the deep white matter on the right. Allowing for motion, there is severe small vessel ischemia disease of the white matter with moderate atrophic changes. 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 There is no evidence of hemorrhage. No mass, mass effect, or midline shift. No suspicious enhancement. Normal signal in the visible bones. The sinuses are normally aerated. Visible extracranial soft tissues including the orbits are normal. IMPRESSION: 1. Severe small vessel periventricular ischemic disease with moderate atrophic changes. Two new small lacunar infarcts in the deep white matter on the right. 2. 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 3. There is a 2 cm cyst or focal area of encephalomalacia in the right frontal white matter. 4. No evidence of hemorrhage
[2016-06-08 18:05] VITALS: BP 163/86
[2016-06-08 23:39] VITALS: BP 141/82
[2016-06-09 02:01] VITALS: BP 162/82
[2016-06-09 06:52] VITALS: BP 155/78
--- NOTE | 2016-06-09 06:59 | Progress Note ---
Subjective General 80 year old male that is presenting with a new onset of left sided weakness. Pateint can not provide much history however around 930 today patient noticed that he had sudden onset left sided weakness and left sided facial droop. He had accompanying dysarthria stemming from the left sided facial weakness. Patient has had a history of strokes in the past which has left him with varying degrees of deficits however patient could not expand on this secondary to his dysarthria. Patient is adament that the left sided weakness symptoms are new. Pateint has no other complaints at the moment, currently waiting for the with more information. Subjective Patient was seen in bedside. Patient was engaging and discuss recent onset of stroke. Patient discussed his family and past. Patient has left-sided facial droop, left-sided arm and leg strength loss. Patient is interested in therapy and pursue some form of strength and activity. Discussed options for therapy care to be provided. The patient has no major complaints today. Patient is relatively comfortable, however, expresses the desire to eat something. . Patient requests Pursuing conditioning. Physical Exam Vital Signs / I&Os Vital Signs Date Time Temp Pulse Resp B/P Pulse O2 O2 Flow FiO2 Ox Delivery Rate 06/09 0652 98.4 62 16 155/78 90 Nasal 2.0 Cannula 06/09 0201 98.2 75 22 162/82 97 Nasal 2.0 Cannula 06/09 0118 2.0 06/08 2339 97.5 61 14 141/82 91 Nasal 2.0 Cannula 06/08 2152 Nasal 2.0 Cannula 06/08 1805 97.7 62 20 163/86 96 Nasal 2.0 Cannula 06/08 1440 97.9 59 20 136/80 92 Nasal 2.0 Cannula 06/08 1037 97 06/08 1001 98.8 59 20 129/68 96 Nasal 3.0 Cannula 06/08 0926 181/83 06/08 0800 2.0 06/08 0701 97.9 59 20 181/83 97 Nasal 2.0 Cannula I&O 06/08 0800 06/08 1600 06/09 0000 Intake Total 0 1181 Output Total 525 650 400 Balance -525 650 781 General Appearance Oriented X3, Cooperative HEENT EOMI, facial droop on the left that seems to be mildly progressive., Dysarthria, Lungs Clear to auscultation Neck Supple, No JVD Cardiovascular Normal S1 and S2, No murmurs, gallops, rubs Abdomen Soft Extremities weakness on the left upper and lower extremity. Neurological neuro lateralization; weakness on the left upper and lower extremity, left facial droop Psych/Mental Status Mood normal Imaging MRI of the brain 1. Severe small vessel periventricular ischemic disease with moderate atrophic changes. Two new small lacunar infarcts in the deep white matter on the right. 2. 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 3. There is a 2 cm cyst or focal area of encephalomalacia in the right frontal white matter. Assessment and Plan Problem List 1. CVA (cerebral vascular accident) Plan Left side affected by lacunar infarct. Goal is to be in secondary prevention. Start patient on physical therapy and activity. Continue with the statin and aspirin therapy. Avoid strenuous activities. Fall precaution 2. Renal insufficiency Plan Maintained Adequate hydration. Avoid dehydration 3. Asthma-COPD overlap syndrome Plan Appears to be moving air well. These and expiratory. Inspiratory wheeze . RT to follow up giving DuoNeb's 4 times a day 8 hours. 4. Coronary arteriosclerosis Plan Coronary artery disease.; Currently on optimized therapy. 5. Dysphagia as late effect of cerebrovascular disease Plan New stroke affecting the right brain. This is affecting left body. Dysphagia, current list implemented to assess swallow. 6. Hemiplegia affecting dominant side, post-stroke Plan New stroke affecting the right brain. This is affecting left body. Patient will be seen by physical therapy to improve her conditioning to pursue rehabilitation. Anticipate the patient will be in the hospital for 1-2 days. Patient will be discharged to a acute care. Nursing facility. Patient was started on physical therapy inpatient address weakness and promote rehabilitation. Hemiplegia secondary to stroke E&M Codes Rounding: Inpt-High/[id number]
[2016-06-09 10:15] VITALS: BP 122/93
[2016-06-09 15:05] VITALS: BP 114/69
[2016-06-09 18:20] VITALS: BP 150/63
[2016-06-09 22:26] VITALS: BP 150/69
[2016-06-10 03:18] VITALS: BP 132/79
[2016-06-10 06:43] VITALS: BP 161/64
--- NOTE | 2016-06-10 06:47 | Progress Note ---
Subjective General Note Date: June 10, 2016 Admission Date: June 08, 2016 Hospital Day: 3 PCP: Status: Inpatient Acute Care Advanced Directive: No CODE Room: 207 Brief history 80 year old male that is presented with a new onset of left sided weakness. Pateint at the time was unable to provide a good history, but on day of admssion patient noticed that he had sudden onset left sided weakness and left sided facial droop. He had accompanying dysarthria stemming from the left sided facial weakness. Patient has had a history of strokes in the past which has left him with varying degrees of deficiencies in speech and movement. Patient was adament that the left sided weakness symptoms are new. Pateint has no other complaints at the moment, currently waiting for the with more information. Patient was admitted by Dr. Chauncey Brito with new onset stroke. Subjective: Patient resting quietly in bed. No complaints. No acute changes. Rested well overnight. Awaiting physical therapy assessment possible discharge acute care nursing facility. [facility] would be the best option for patient. Patient requests: Follow-up as needed Physical Exam Vital Signs / I&Os Vital Signs Date Time Temp Pulse Resp B/P Pulse O2 O2 Flow FiO2 Ox Delivery Rate 06/10 0643 98.4 67 18 161/64 97 Nasal 2.5 Cannula 06/10 0318 98.2 53 15 132/79 92 Nasal 2.5 Cannula 06/10 0047 Nasal 2.5 Cannula 06/09 2258 3.0 06/09 2226 98.1 63 16 150/69 94 Nasal 3.0 Cannula 06/09 1939 3.0 06/09 1820 98.6 61 20 150/63 93 Nasal 3.0 Cannula 06/09 1540 Nasal 3.0 Cannula 06/09 1505 97.5 64 20 114/69 93 Nasal 3.0 Cannula 06/09 1445 3.0 06/09 1015 97.3 46 24 122/93 94 Nasal 2.0 Cannula 06/09 0652 98.4 62 16 155/78 90 Nasal 2.0 Cannula I&O 06/09 0800 06/09 1600 06/10 0000 Intake Total 530 1381 360 Output Total 1225 550 675 Balance -695 831 -315 General Appearance No acute distress HEENT facial droop on the left., Dysarthria Lungs Sonorous rhonchi bilaterally. Random wheeze. movement is equal bilaterally but with restrictions Neck No JVD Cardiovascular Regular rate and rhythm, Normal S1 and S2 Abdomen Soft Extremities No cyanosis, No clubbing, weakness in the left upper and left lower extremity Neurological Cranial nerves intact, left-sided hemiplegia; weakness, left arm, left leg LAB Results Laboratory Tests 06/10 0525 Chemistry Plasma Sodium (136 - 145 mmol/L) 144 Plasma Potassium (3.5 - 5.1 mmol/L) 3.4 Plasma Chloride (98 - 107 mmol/L) 106 CO2 (Enzymatic) (21 - 32 mmol/L) 30 BUN (7 - 18 mg/dL) 12 Creatinine (0.6 - 1.3 mg/dL) 1.5 Est GFR ( Amer) (mL/min) 58.15 Est GFR (Non-Af Amer) (mL/min) 47.98 Glucose (70 - 110 mg/dL) 94 Plasma Calcium (8.5 - 10.1 mg/dL) 8.3 Total Bilirubin (0.0 - 1.0 mg/dL) 0.4 AST (15 - 37 U/L) 18 ALT (12 - 78 U/L) 15 Alkaline Phosphatase (46 - 116 U/L) 89 Total Protein (6.4 - 8.2 g/dL) 5.7 Albumin (3.3 - 5.0 g/dL) 3.2 Hematology WBC (4.5 - 11.5 K/uL) 6.0 RBC (4.50 - 5.90 M/uL) 4.12 Hgb (13.5 - 17.5 gm/dL) 12.0 Hct (41.0 - 53.0 %) 36.5 MCV (80 - 100 fL) 89 MCH (26 - 34 pg) 29 RDW (11.6 - 14.8 %) 14.6 Neut % (Auto) (50 - 75 %) 52.3 Lymph % (Auto) (25 - 40 %) 29.6 [place] % (Auto) (3 - 14 %) 10.5 Eos % (Auto) (0 - 4 %) 7.1 Baso % (Auto) (0 - 2 %) 0.5 Plt Count, EDTA (150 - 400 K/uL) 145 PUBS MCHC (31 - 37 g/dL) 33 Assessment and Plan Problem List 1. CVA (cerebral vascular accident) Plan Acute stroke, lacunar infarct, right. Somatic changes on the left with a facial droop on the left. Speech therapy has been employed. Patient is under physical therapy for assessment and rehabilitation. Likely discharged to a acute care rehabilitation facility. Optimize medication. 2. Renal insufficiency Plan Insufficiency with balance between fluid and dehydration. Continue to monitor fluid balance and kidney function.. Avoid nephrotoxic agents. 3. Asthma-COPD overlap syndrome Plan Monitoring saturations and breathlessness. RT has maintained her airway. Continue with the DuoNeb's as needed. 4. Coronary arteriosclerosis Plan History of atherosclerosis. Likely Plavix formation leading to embolus. Continue with statin therapy and antiplatelet. 5. Hemiplegia affecting dominant side, post-stroke Plan Needing rehabilitation to promote re-eductation of neuro-muscular structures. Patient is discharged to acute care program. 6. Dysphagia as late effect of cerebrovascular disease Plan Speech and swallow was assessed Current status: Stable, improving. Anticipated discharge date: 06/10 or 06/11 2016 Anticipated discharge placement: 1-2 days Patient care time: Time spent in chart review, patient interview, physical exam, CPOE, and care documentation: 25 minutes Visit to patient today: 2 Complexity of care: Moderate E&M Codes Rounding: Inpt-Moderate/[id number]
--- NOTE | 2016-06-10 11:57 | Discharge Summary ---
Discharge Summary Report Admit Date 06/07/16 Discharge Date 06/10/16 Admission Diagnosis 1. CVA. 2. Renal insufficiency. 3. Asthma-COPD overlap syndrome. 4. Coronary arteriosclerosis. 5. Depression. 6. Gastric ulcer. Discharge Diagnosis 1. CVA. 2. Renal insufficiency. 3. Asthma-COPD overlap syndrome. 4. Coronary arteriosclerosis. 5. Depression. 6. Gastric ulcer. Brief History 80 year old male that is presented with a new onset of left sided weakness. Pateint at the time was unable to provide a good history, but on day of admssion patient noticed that he had sudden onset left sided weakness and left sided facial droop. He had accompanying dysarthria stemming from the left sided facial weakness. Patient has had a history of strokes in the past which has left him with varying degrees of deficiencies in speech and movement. Patient was adament that the left sided weakness symptoms are new. Pateint has no other complaints at the moment, currently waiting for the with more information. Patient was admitted by Dr. Chauncey Brito with new onset stroke. Hospital Course 80-year-old male admitted with left sided weakness secondary to right side lacunar stroke. Patient was admitted for observation and for workup and imaging protocol. Initial imaging in the emergency department was out of his CT scan that showed a 1.5 cm: Right occipital lobe infarct. Encephalomalacia in the right frontal lobe. Patient received MRI of the brain that showed 2 new small lacunar infarcts in the deep white matter, right side. Also seen were old, 1.5 cm infarct right occipital lobe. A 2 cm cyst or area of encephalomalacia of the right frontal lobe. Patient was assessed by speech and swallow. It was recommended that he continue with the mechanical soft diet with thin liquids. Patient was agreeable to this. Patient's diet and tolerance, can be advanced as improvement occurs. Patient was assessed for physical therapy/occupational therapy. The recommendations were patent to be discharged to SNF for rehabilitation. He should should be discharged to a facility with PT and OT for strengthening and transfer training. General Appearance No acute distress HEENT facial droop on the left Lungs Clear to auscultation, Normal air movement Cardiovascular Normal S1, Normal S2, No murmurs Abdomen Soft, No tenderness Skin No Breakdown Neurological Cranial nerves 3-12 NL Psych/Mental Status Mood NL Lab/Imaging Laboratory Tests 06/10 0525 Chemistry Plasma Sodium (136 - 145 mmol/L) 144 Plasma Potassium (3.5 - 5.1 mmol/L) 3.4 Plasma Chloride (98 - 107 mmol/L) 106 CO2 (Enzymatic) (21 - 32 mmol/L) 30 BUN (7 - 18 mg/dL) 12 Creatinine (0.6 - 1.3 mg/dL) 1.5 Est GFR ( Amer) (mL/min) 58.15 Est GFR (Non-Af Amer) (mL/min) 47.98 Glucose (70 - 110 mg/dL) 94 Plasma Calcium (8.5 - 10.1 mg/dL) 8.3 Total Bilirubin (0.0 - 1.0 mg/dL) 0.4 AST (15 - 37 U/L) 18 ALT (12 - 78 U/L) 15 Alkaline Phosphatase (46 - 116 U/L) 89 Total Protein (6.4 - 8.2 g/dL) 5.7 Albumin (3.3 - 5.0 g/dL) 3.2 Hematology WBC (4.5 - 11.5 K/uL) 6.0 RBC (4.50 - 5.90 M/uL) 4.12 Hgb (13.5 - 17.5 gm/dL) 12.0 Hct (41.0 - 53.0 %) 36.5 MCV (80 - 100 fL) 89 MCH (26 - 34 pg) 29 RDW (11.6 - 14.8 %) 14.6 Neut % (Auto) (50 - 75 %) 52.3 Lymph % (Auto) (25 - 40 %) 29.6 [place] % (Auto) (3 - 14 %) 10.5 Eos % (Auto) (0 - 4 %) 7.1 Baso % (Auto) (0 - 2 %) 0.5 Plt Count, EDTA (150 - 400 K/uL) 145 PUBS MCHC (31 - 37 g/dL) 33 Brain MRI performed on 02/07/2017. IMPRESSION: 1. Severe small vessel periventricular ischemic disease with moderate atrophic changes. Two new small lacunar infarcts in the deep white matter on the right. 2. 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 3. There is a 2 cm cyst or focal area of encephalomalacia in the right frontal white matter. 4. No evidence of hemorrhage Discharge Instructions/Meds 80-year-old male with recent onset stroke, hemiparesis on the left discharge to [facility] Under the care and attending of Dr. Fredy Shah. Patient is discharged for PT, OT strengthening and transfer training protocol. Patient has recommendations to maintain a mechanical soft diet with thin liquids. Patient may advance after appropriately evaluating swallow. Continue with the home medications which include Abilify (dosing unavailable), albuterol 2-4 puffs every 6 hours as needed for wheeze and shortness of breath, Atrovent HFA 1-2 puffs taken every 6 hours as needed. Oral aspirin 325 mg by mouth daily., Simvastatin 40 mg by mouth daily., Clopidogrel 75 mg daily, sertraline 100 mg by mouth daily, sucralfate 1 g by mouth daily, cyanocobalamin 1000 g by mouth daily, bicalutamide 50 mg 1 tab daily, calcium supplement chewable 500 mg 1 tablet by mouth, fluticasone HFA 1 puff twice a day. Metoprolol succinate extended release 50 mg by mouth daily. The patient on physical therapy sterilization. Maintain oxygen 2 L at night. Maintain and reviewed psychiatric profile. Discharge home once stable. Greater than 30 minutes was spent in the patient's discharge preparation
--- NOTE | 2016-06-10 12:24 | Provider's Discharge Care Plan ---
Problem, Goal, Plan Problem List 1. CVA (cerebral vascular accident) Goals: Improve disease control, Learn about illness Instructions: Take meds as directed 2. Renal insufficiency Goals: Improve disease control, Improve nutrition status, Prevent disease progress Instructions: Take meds as directed 3. Asthma-COPD overlap syndrome Goals: Improve nutrition status, Prevent disease progress Instructions: Increase activity level 4. Coronary arteriosclerosis Goals: Improve nutrition status, Learn about illness Instructions: Follow up as directed 5. Depression Goals: Learn about illness Instructions: Follow up as needed 6. Gastric ulcer Goals: Improved health/wellness, Improve nutrition status Instructions: Take meds as directed 7. Dysphagia as late effect of cerebrovascular disease Goals: Learn about illness Instructions: follow dietary changes and recommendations for [facility] 8. Hemiplegia affecting dominant side, post-stroke Goals: Learn about illness, Prevent disease progress Instructions: all of rehabilitation measures through [facility].
[2016-06-10 17:29] VITALS: BP 148/75
[2016-06-10 23:57] VITALS: BP 171/99
--- NOTE | 2016-06-11 06:32 | Progress Note ---
Subjective General Note Date: June 11, 2016 Admission Date: June 08 2016 Hospital Day: 4 PCP: gary Status: Inpatient Advanced Directive: No CODE Room: 205-S 80 year old male that is presented with a new onset of left sided weakness. Pateint at the time was unable to provide a good history, but on day of admssion patient noticed that he had sudden onset left sided weakness and left sided facial droop. He had accompanying dysarthria stemming from the left sided facial weakness. Patient has had a history of strokes in the past which has left him with varying degrees of deficiencies in speech and movement. Patient was adament that the left sided weakness symptoms are new. Pateint has no other complaints at the moment, currently waiting for the with more information. Patient was admitted by Dr. Chauncey Brito with new onset stroke. Subjective: Patient was seen and examined. Patient is waiting for discharge. Patient have a difficult time with ambulation, especially with walking without support. Tolerating meals Patient requests Discharged to SNF Physical Exam Vital Signs / I&Os Vital Signs Date Time Temp Pulse Resp B/P Pulse O2 O2 Flow FiO2 Ox Delivery Rate 06/11 0110 2.0 06/10 2357 98.8 83 18 171/99 98 Room Air 06/10 2355 Nasal 2.0 Cannula 06/10 2034 2.0 06/10 2030 Nasal 2.0 Cannula 06/10 1735 18 98 Nasal 2.0 Cannula 06/10 1729 51 18 148/75 06/10 1720 2.0 06/10 1231 98.5 67 18 161/64 06/10 0849 Nasal 2.5 Cannula 06/10 0830 2.5 06/10 0643 98.4 67 18 161/64 97 Nasal 2.5 Cannula I&O 06/10 0800 06/10 1600 06/11 0000 Intake Total 325 100 480 Output Total 700 400 Balance -375 100 80 General Appearance Oriented X3, Cooperative Lungs Clear to auscultation Cardiovascular Normal S1 and S2, No murmurs, gallops, rubs Abdomen Soft, No tenderness Extremities weakness on the left side, left facial droop Skin eschar on the left forearm wrapped and covered Neurological weakness, generally left upper and lower extremity, left facial droop. Speech impediment Psych/Mental Status Mood normal Assessment and Plan Problem List 1. CVA (cerebral vascular accident) Plan No further changes. Factors maybe been a little bit of improvement. Rehabilitation as patient is transferred to [facility]. 2. Dysphagia as late effect of cerebrovascular disease Plan Patient on a mechanical soft diet. Maintain same diet as patient is transferred to [facility]. 3. Hemiplegia affecting dominant side, post-stroke Plan Hemiplegia affecting the left side. Secondary to right lacunar stroke 2. Patient will be discharged to a care home facility. [facility]. 4. Asthma-COPD overlap syndrome Plan Monitoring pulmonary function. No application through [facility] at this time. 5. Coronary arteriosclerosis Plan Stable. Recommending follow-up with cardiology as an outpatient Current status: stable poor Anticipated discharge date: 06/11/16 Anticipated discharge placement: [facility] Patient care time: Time spent in chart review, patient interview, physical exam, CPOE, and care documentation: 25 minutes Visit to patient today: 1 Complexity of care: Mild Moderate E&M Codes Rounding: Inpt-Moderate/[id number]
[2016-06-11 06:47] VITALS: BP 151/82
[2016-06-11 11:07] VITALS: BP 139/71
== END 2016-06-11 13:45 | DRG 65 ==
LOC: ED SRH 20:51 → TRANS SRH 21:49 → ACUTE2 SRH 23:31
PROVIDERS: ADMIT Family Medicine
DX: I63.9 Cerebral infarction, unspecified (principal); G81.92 Hemiplegia, unspecified affecting left dominant side; R29.810 Facial weakness; R47.02 Dysphasia; R79.89 Other specified abnormal findings of blood chemistry; I69.991 Dysphagia following unspecified cerebrovascular disease; R13.10 Dysphagia, unspecified; J44.9 Chronic obstructive pulmonary disease, unspecified; Z87.891 Personal history of nicotine dependence; N28.9 Disorder of kidney and ureter, unspecified; I25.10 Atherosclerotic heart disease of native coronary artery without angina pectoris; Z95.5 Presence of coronary angioplasty implant and graft
CPT/HCPCS: 20011; 83766; 85241; 85244; 90004; 90074; 90100; 90616; 91556; 92610; 92720; 94001; 94050; 94060; 95059